=== PATIENT | male | born 1970 | race African-American/Black ===

== ENCOUNTER 2021-02-11 21:16 | Inpatient (IN) | payer MEDICAID ==
[~2021-02-11] VITALS: Ht 170.2 cm; Wt 74.8 kg
[2021-02-12 00:23] LABS: BASOPHILS % 0.8 % (0.0-2.0); CHLORIDE 103 mEq/L (98-107); EOSINOPHILS % 3.2 % (0.0-5.0); HEMATOCRIT. 36.3 % (42.0-52.0); HEMOGLOBIN. 12.1 g/dL (14.0-18.0); LYMPHOCYTES % 18.9 % (20.0-50.0); MEAN CORPUSCULAR HEMOGLOBIN 29.1 pg (28.0-32.0); MEAN CORPUSCULAR VOLUME 87.1 fL (80.0-94.0); MEAN PLATELET VOLUME 6.6 fl (7.4-10.4); MONOCYTES % 12.8 % (2.0-8.0); NEUTROPHILS % 64.3 % (40.0-76.0); PLATELET 195 x1000/uL (130-400); RED BLOOD CELL COUNT 4.16 mill/uL (4.7-6.1); RED CELL DISTRIBUTION WIDTH 13.3 % (11.6-14.6)
[2021-02-12] MEDS ORDERED: APIXABAN 5 MG TABLET PO STA (01:07)
[2021-02-12] MEDS ORDERED: ONDANSETRON HCL 4MG/2ML INJ IV PRN (02:45)
[2021-02-12] MEDS ORDERED: DOCUSATE SODIUM 100MG CAPSULE PO PRN (02:45)
[2021-02-12] MEDS ORDERED: ACETAMINOPHEN 325MG TABLET PO PRN (02:45)
[2021-02-12] MEDS ORDERED: MAGNESIUM/ALUMINUM HYDROXIDE/SIMETHICONE 30ML UDC PO PRN (02:45)
[2021-02-12] MEDS ORDERED: HYDROCODONE/ACETAMINOPHEN 5/325MG TABLET PO PRN (02:45)
[2021-02-12] MEDS ORDERED: CLONIDINE 0.1MG TABLET PO PRN (02:45)
[2021-02-12] MEDS ORDERED: NALOXONE HCL 0.4MG/ML VIAL IV PRN (03:00)
[2021-02-12] MEDS ORDERED: ASPIRIN 81MG EC TABLET PO SCH (09:00)
[2021-02-12 10:53] VITALS: BP 109/70
[2021-02-12 12:45] VITALS: BP 139/58
[2021-02-12] MEDS ORDERED: ENOXAPARIN 80MG/0.8ML SYR SUBCUT SCH (21:00)
== END 2021-02-12 13:30 | disposition home or self-care (01) | DRG 197 ==
LOC: ER 21:16 → 7EST 02-12 02:39 → EDBEDREQ 02-12 02:52 → ENRESERV 02-12 07:51
PROVIDERS: ADMIT Hospitalist; ATTEND Hospitalist
DX: I82.413 Acute embolism and thrombosis of femoral vein, bilateral (principal); I82.432 Acute embolism and thrombosis of left popliteal vein
CPT/HCPCS: 36415; 71045; 80053; 83880; 85025; 93005; 93970; 99285

== ENCOUNTER 2023-07-17 14:03 | Emergency (ER) | payer MEDICAID ==
[~2023-07-17] VITALS: Ht 172.7 cm; Wt 70.0 kg
[2023-07-17 14:08] VITALS: BP 154/131; TEMP 98; O2SAT 98
[2023-07-17 14:09] VITALS: PULSE 71; RESP 16
[2023-07-17] MEDS: FLUORESCEIN SODIUM 1MG/STRIP BOTHEYE ONE (15:02)
[2023-07-17] MEDS: TETRACAINE 0.5% OPHTH DROPS 4ML BOTHEYE ONE (15:02)
[2023-07-17] MEDS ORDERED: SILV50CR31 TP (15:45)
== END 2023-07-17 16:32 | disposition home or self-care (01) ==
LOC: ER 14:03
DX: H10.211 Acute toxic conjunctivitis, right eye (principal)
CPT/HCPCS: 99283; Z7610